=== PATIENT | female | born 1955 | race Caucasian/White ===

== ENCOUNTER → 2016-12-18 | Outpatient (CLI) | payer BC, OTHER ==
--- NOTE | ~2016-12-18 | S ---
[facility] [place] [address] SURGICAL PATH RPT PROCEDURE Name: NORMA DALEY ANN Room #: REG WAYNE Smith.Petros.#: [id number] Admission: 12/18/16 Date of : 57 Discharge: Report #: [id number] Path Case #: [id number] PATHOLOGY REPORT COLLECTION DATE: 12/18/2016 RECEIVED DATE: 12/18/2016 SUBMITTING PHYS: Dr. Ronald Carbajal OTHER PHYS: Dr. Vanessa Pinon SPECIMEN(S) RECEIVED: A.Left isthmic thyroid nodule * * * * * * * * * * * * FINAL DIAGNOSIS: Thyroid, left isthmus, thyroid nodule, needle core biopsy: - Mixed macro- and microfollicular architecture. - Negative for nuclear features of papillary thyroid carcinoma. COMMENT: Examination shows a mixed macro- and microfollicular architecture with abundant colloid within the glands. Nuclear features of papillary thyroid carcinoma are not identified. A definite capsule-like structure is not identified. Please note the nature of the biopsy precludes evaluation for follicular carcinoma. Sample represents a minute portion of a large lesion and may not be sales representative canvas products. Correlate clinically and follow up as indicated. Co-review: Dr. Godwin Campuzano. The concurrent cytology, [id number], showed findings consistent with an adenomatoid nodule. Please refer to a separate report for complete details. (IUV:csd; d/t: 12/19/2016) PATHOLOGIST: Anuradha Newell M.D. REPORT ELECTRONICALLY SIGNED BY: Anuradha Newell M.D. DATE/TIME: 12/19/2016 16:34 * * * * * * * * * * * * GROSS PATHOLOGY: The specimen is received in formalin labeled "Norma Daley, left thyroid biopsy isthmic ". Received are multiple needle cores of friable pale parisi soft tissue measuring 0.5 x 0.4 x 0.1 cm in aggregate dimensions. The specimen is filtered and entirely submitted in cassette A1. (CAA; 12/18/2016) [facility] [place] [address] SURGICAL PATH RPT PROCEDURE Name: EDINORMAPAOLO Room #: REG CLRadha M.Petros.#: [id number] Admission: 12/18/16 Date of : 57 Discharge: Report #: [id number] Path Case #: [id number] CLINICAL HISTORY: Thyroid nodule INITIAL CPT CODE(S): A; 79709 Professional services performed by [facility] at [address], [place] [address] Technical services performed by [facility] at [address] [place] [address], [address], [place] [address]. [facility] [place] [address] PHONE: [phone] DIRECTOR: Gonzales Vogt M.D. * * * END OF REPORT * * *
--- NOTE | ~2016-12-18 | CNG ---
[facility] [place] [address] CYTO-NONGYN REPORT PROCEDURE Name: NORMA DALEY ANN Room #: REG WAYNE Yogi.#: [id number] Admission: 12/18/16 Date of : 57 Discharge: Report #: [id number] Path Case #: [id number] CYTOPATHOLOGY REPORT COLLECTION DATE: 12/18/2016 RECEIVED DATE: 12/18/2016 SUBMITTING PHYS: Dr. Ronald Carbajal OTHER PHYS: Dr. Vanessa Pinon CLINICAL HISTORY: Left isthmus thyroid nodule 2.0 cm See also [id number] SPECIMEN(S) RECEIVED: A.Fine needle aspiration, thyroid, left isthmus * * * * * * * * * * * * FINAL DIAGNOSIS: A. Thyroid, left isthmus, Fine needle aspiration: B[place] CATEGORY II. SPECIMEN CONSISTS OF BENIGN FOLLICULAR CELLS, HEMOSIDERIN-LADEN MACROPHAGES, COLLOID, AND BLOOD. THIS PATTERN IS CONSISTENT WITH AN ADENOMATOID NODULE. COMMENT: Nuclear features of papillary thyroid carcinoma are not identified. Please note sample represents a minute portion of a larger lesion and may not be credit and collections representative. Correlate clinically and follow-up as indicated. The concurrent biopsy tissue [id number] showed similar findings. Please see separate report. (IUV; 12/19/16) PATHOLOGIST: Anuradha Newell M.D. REPORT ELECTRONICALLY SIGNED BY: Anuradha Newell M.D. DATE/TIME: 12/19/2016 14:37 * * * * * * * * * * * * GROSS PATHOLOGY: A. Fine needle aspiration, thyroid, left isthmis: The specimen is labeled "Norma Daley" and consists of 5 air dried slides and 5 fixed slides. Twenty mL of cloudy opaque fluid in CytoLyt from the needle rinse is also submitted and one ThinPrep and cell block were prepared from this material. (kg 12/18/16) [employer](S): JAVIER Menon(ASCP) INITIAL CPT CODE(S): A; 30382, 48813 Professional services performed by [facility] at [address] [address] CYTO-NONGYN REPORT PROCEDURE Name: NORMA DALEY ANN Room #: REG WAYNE Oliver#: [id number] Admission: 12/18/16 Date of : 57 Discharge: Report #: [id number] Path Case #: [id number] [address] [place] [address] [facility] at [address] [place] [address]., [address], [place] [address]. [address], [facility] [address] [place] [address] PHONE: [phone] DIRECTOR: Gonzales Vogt M.D. * * * END OF REPORT * * *
== END | disposition home or self-care (01) ==
LOC: ULTRA 09:24
DX: D34 Benign neoplasm of thyroid gland (principal)

== ENCOUNTER 2017-01-21 09:21 | Emergency (ER) | payer BC, OTHER ==
[~2017-01-21] VITALS: Ht 157.5 cm; Wt 68.5 kg
--- NOTE | ~2017-01-21 | EKG ---
[place] [address] [facility] [place] [address] ELECTROCARDIOGRAM REPORT Name: DALEYNORMA STONE Room #: DEP DANTE Oliver#: [id number] Admission: 01/21/17 Attend Phys: Discharge: 01/21/17 Date of : 57 Report #: [id number] THIS REPORT FOR: //name// [facility] ED Test Date: 2017-01-21 Test Time: 10:02:59 Pat Name: NORMA DALEY Department: Room: Gender: F Die Baker: Rubia VILLAGRAN : 1955 Requested By: Karol Shelley Order Number: [id number] MD: Evaristo Munoz Measurements Intervals [place] Rate: 83 P: 63 TX: 175 QRS: 39 QRSD: 95 T: 46 QT: 363 QTc: 427 Interpretive Statements Sinus rhythm No significant abnormality No previous ECG available for comparison Electronically Signed On 01-22-2017 8:26:55 CDT by Evaristo Munoz [email or web address] <ELECTRONICALLY SIGNED> By: Evaristo Munoz MD, [facility] 01/22/17 0826 1002 1002 Evaristo Munoz MD, FACC /EPI
[2017-01-21] MEDS ORDERED: LIPITOR 20 MG T20 M1 PO (09:41)
[2017-01-21] MEDS ORDERED: NEXIUM 24HR20 MG PO (09:42)
[2017-01-21] MEDS ORDERED: AMLODIPINE BESY10 MG PO (09:42)
[2017-01-21] MEDS ORDERED: SLOW-MAG64 M1 PO (09:42)
[2017-01-21] MEDS ORDERED: LORATIDINE 10 M10 M1 PO (09:43)
[2017-01-21] MEDS ORDERED: ONE-A-DAY WOMENS PO (09:43)
[2017-01-21] MEDS ORDERED: CALCIUM 600 +1 EAC1 PO (09:43)
[2017-01-21] MEDS ORDERED: BACTRIM DS TAB1 EACH PO (09:43)
[2017-01-21 10:12] LABS: HEMATOCRIT 33.3 % (37.0-47.0); HEMOGLOBIN 10.6 gm/dL (12.0-15.0); MCH 23.5 pg (26.0-34.0); MCHC 31.8 g/dL (28.0-37.0); MCV 73.9 fL (80.0-100.0); PLATELET COUNT 159 thou/uL (150-400); RBC 4.51 mil/uL (4.20-5.00); RDW 23.1 % (10.5-14.5); WBC 3.8 thou/uL (4.0-11.0)
[2017-01-21 10:13] LABS: MANUAL DIFF YES
[2017-01-21 10:19] LABS: ANION GAP 13 mmol/L (7-16); BUN 15 mg/dL (7-18); CALCIUM 8.2 mg/dL (8.5-10.1); CHLORIDE 103 mmol/L (98-107); CO2 19 mmol/L (21-32); GLUCOSE 134 mg/dL (74-106); SODIUM 135 mmol/L (136-145)
[2017-01-21 10:26] LABS: ALBUMIN 3.2 g/dL (3.4-5.0); ALKALINE PHOSPHATASE 173 U/L (46-116); SGOT 561 U/L (15-37); SGPT 699 U/L (30-65); TOTAL BILIRUBIN 0.3 mg/dL (<0.1-1.0); TOTAL PROTEIN 7.2 g/dL (6.4-8.2); TROPONIN-I < 0.04 ng/mL (<0.04-0.07)
[2017-01-21 10:40] LABS: URINE BILIRUBIN NEGATIVE (Negative); URINE BLOOD NEGATIVE (Negative); URINE COLOR YELLOW; URINE GLUCOSE-RANDOM* NEGATIVE (Negative); URINE KETONES NEGATIVE (Negative); URINE NITRITE NEGATIVE (Negative); URINE PROTEIN (DIPSTICK) NEGATIVE (Negative)
[2017-01-21 11:05] LABS: ABSOLUTE NEUTROPHILS 2.9 thou/uL (1.4-8.2); PLATELET ESTIMATE NORMAL; TOTAL CELL COUNT 100
[2017-01-21 11:06] LABS: ANISOCYTOSIS 2+; MICROCYTES 2+
[2017-01-21] MEDS ORDERED: PREDNISONE 20 M20 MG PO (12:20)
[2017-01-21 12:46] VITALS: BP 121/51
== END 2017-01-21 12:47 | disposition home or self-care (01) ==
LOC: ER 09:21
PROVIDERS: Physician Assistant
DX: L93.0 Discoid lupus erythematosus (principal); M25.50 Pain in unspecified joint; Z88.0 Allergy status to penicillin